=== PATIENT | female | born 1970 | race Caucasian/White ===

== ENCOUNTER 2017-04-05 14:10 | Emergency (ER) | payer BC ==
[~2017-04-05] VITALS: Ht 157.5 cm; Wt 91.0 kg
[2017-04-05 14:12] VITALS: BP 159/99; PULSE 102; RESP 24; TEMP 98.5; O2SAT 98
[2017-04-05] MEDS ORDERED: BIRTHCONTROL (15:04)
[2017-04-05] MEDS ORDERED: ZANA2CAP PO (15:04)
[2017-04-05] MEDS ORDERED: VOLT100T (15:04)
[2017-04-05] MEDS ORDERED: CETI10CA3 (15:04)
[2017-04-05] MEDS ORDERED: MONT4CHW2 CHEW (15:04)
[2017-04-05] MEDS ORDERED: LEXA10TA PO (15:04)
--- NOTE | 2017-04-05 15:14 | PD ---
HPI Chief Complaint: Neuro Symptoms/ Deficits Time Seen by Provider: 14:44 Travel History International Travel<30 days: No Contact w/Intl Traveler<30days: No Traveled to known affect area: No History of Present Illness HPI The patient's 46 years old. She describes a tremor. She reports in September 2016 to cervical fusion with a plate and screws. This was done by Dr. Munoz. She reports for the past 8 days or so she has had generalized tremor. It has been constant. It's worsening. She saw her neurosurgeon he didn't x-ray and had her follow up with primary care. She reports shaking and chills at night. She denies any change in medications. Associated symptoms include dizziness. No fecal/urinary incontinence. No upper extremity weakness. No saddle anesthesia. PFSH Past Medical History Reproductive: Yes (one ovary) ?: Not LMP: years Social History Alcohol Use: No Tobacco Use: Yes Substance Use: No Allergies-Medications (Allergen,Severity, Reaction): Coded Allergies: No Known Allergies (Unverified , 04/05/17) Reported Meds & Prescriptions Reported Meds & Active Scripts Active Bactrim DS (Sulfamethoxazole-Trimethoprim) 800-160 Mg Tab 1 Tab PO BID 5 Days Valium (Diazepam) 5 Mg Tab 5 Mg PO BID PRN Reported [Birthcontrol ] DAILY Lexapro (Escitalopram Oxalate) 10 Mg Tab 10 Mg PO HS Singulair (Montelukast Sodium) 4 Mg Chew Unknown Dose CHEW HS Zyrtec (Cetirizine HCl) 10 Mg Capsule HS Voltaren-Xr (Diclofenac Sodium) 100 Mg Tab.er.24h 75 HS Zanaflex (Tizanidine HCl) 2 Mg Cap 2 Mg PO HS Review of Systems Except as stated in HPI: all other systems reviewed are Neg Physical Exam Narrative GENERAL: 46 yo F, WNWD, mild distress SKIN: Warm and dry. HEAD: Atraumatic. Normocephalic. EYES: Pupils equal and round. No scleral icterus. No injection or drainage. ENT: No nasal bleeding or discharge. Mucous membranes pink and moist. NECK: Trachea midline. No JVD. CARDIOVASCULAR: Regular rate and rhythm. RESPIRATORY: No accessory muscle use. Clear to auscultation. Breath sounds equal bilaterally. GASTROINTESTINAL: Abdomen soft, non-tender, nondistended. Hepatic and splenic margins not palpable. MUSCULOSKELETAL: Extremities without clubbing, cyanosis, or edema. No obvious deformities. NEUROLOGICAL: Mild generalized tremor. CN III-XII. Normal speech. Normal memory/ mentation. Motor function normal. Cerebellar function normal. PSYCHIATRIC: Appropriate mood and affect; insight and judgment normal. Data Data Last Documented VS Vital Signs Date Time Temp Pulse Resp B/P (MAP) Pulse Ox O2 Delivery O2 Flow Rate FiO2 04/05/17 14:12 98.5 102 24 159/99 (119) 98 Room Air VS reviewed Orders Orders Basic Metabolic Panel (Bmp) (04/05/17 15:04) Complete Blood Count With Diff (04/05/17 15:04) Urinalysis - C+S If Indicated (04/05/17 15:04) Ecg Monitoring (04/05/17 15:04) Iv Access Insert/Monitor (04/05/17 15:04) Oximetry (04/05/17 15:04) Sodium Chloride 0.9% Flush (Ns Flush) (04/05/17 15:15) Drug Screen, Random Urine (04/05/17 15:04) Lorazepam Inj (Ativan Inj) (04/05/17 15:15) Oxycodone-Acetamin 5-325 Mg (Percocet (04/05/17 15:15) Ct Brain W/O Iv Contrast(Rout) (04/05/17 15:10) Urine Culture (04/05/17 15:42) Ceftriaxone Inj (Rocephin Inj) (04/05/17 17:00) Labs Laboratory Tests Test 04/05/17 15:42 White Blood Count 9.6 TH/MM3 Red Blood Count 4.64 MIL/MM3 Hemoglobin 15.3 GM/DL Hematocrit 45.1 % Mean Corpuscular Volume 97.3 FL Mean Corpuscular Hemoglobin 33.0 PG Mean Corpuscular Hemoglobin Concent 34.0 % Red Cell Distribution Width 13.1 % Platelet Count 323 TH/MM3 Mean Platelet Volume 7.7 FL Neutrophils (%) (Auto) 68.7 % Lymphocytes (%) (Auto) 24.6 % Monocytes (%) (Auto) 5.1 % Eosinophils (%) (Auto) 0.8 % Basophils (%) (Auto) 0.8 % Neutrophils # (Auto) 6.6 TH/MM3 Lymphocytes # (Auto) 2.4 TH/MM3 Monocytes # (Auto) 0.5 TH/MM3 Eosinophils # (Auto) 0.1 TH/MM3 Basophils # (Auto) 0.1 TH/MM3 CBC Comment DIFF FINAL Differential Comment Urine Color YELLOW Urine Turbidity HAZY Urine pH 5.5 Urine Specific Meredith 1.024 Urine Protein TRACE mg/dL Urine Glucose (UA) NEG mg/dL Urine Ketones NEG mg/dL Urine Occult Blood TRACE Urine Nitrite NEG Urine Bilirubin NEG Urine Urobilinogen 2.0 MG/DL Urine Leukocyte Esterase LARGE Urine RBC 3 /hpf Urine WBC 22 /hpf Urine Squamous Epithelial Cells 4 /hpf Urine Calcium Oxalate Crystals FEW /hpf Urine Bacteria MOD /hpf Urine Hyaline Casts 1 /lpf Urine Mucus MOD /lpf Microscopic Urinalysis Comment CATH-CULTURE IND Blood Urea Nitrogen 8 MG/DL Creatinine 0.90 MG/DL Random Glucose 83 MG/DL Calcium Level 8.4 MG/DL Sodium Level 139 MEQ/L Potassium Level 4.0 MEQ/L Chloride Level 109 MEQ/L Carbon Dioxide Level 24.8 MEQ/L Anion Gap 5 MEQ/L Estimat Glomerular Filtration Rate 67 ML/MIN Urine Opiates Screen NEG Urine Barbiturates Screen NEG Urine Amphetamines Screen NEG Urine Benzodiazepines Screen NEG Urine Cocaine Screen NEG Urine Cannabinoids Screen NEG MDM Medical Decision Making Medical Screen Exam Complete: Yes Emergency Medical Condition: Yes Differential Diagnosis essential tremor, electrolyte imbalance, renal failure, medication side effect, chronic pain, anxiety Narrative Course CBC & BMP Diagram 04/05/17 15:42 Calcium Level 8.4 L UA: UTI present UTOX: negative Last [address] 04/05/17 1510 Signed Impressions: Service Date/Time: Wednesday, April 05, 2017 15:52 - CONCLUSION: Negative noncontrast contrast CT Shyam Pat MD The patient is resting comfortably and feels better, is alert and in no distress. The patients results and examination findings were discussed. The repeat examination is unremarkable and benign. The history, exam, diagnostic testing, and current condition do not suggest any significant pathology to warrant further testing, continued ED treatment, admission, or surgical evaluation at this point. The vital signs have been stable. The patient does not have uncontrollable pain, intractable vomiting, or other significant symptoms. The patient's condition is stable and appropriate for discharge. The patient will pursue further outpatient evaluation with a primary care physician or other designated or consulting physician as indicated in the discharge instructions. The patient expressed understanding and was agreeable with this plan. Diagnosis Primary Impression: Tremor Referrals: Alba Hays MD call for appointment Misha Vasquez MD call for appointment Additional Instructions: You have a choice when it comes to health care, and we are glad that you chose [facility]. Hopefully, we have met your expectations on today's visit. You are welcome to return to [facility] at any time, as we are committed to meeting the health care needs of our community. Med/Other Pt SpecificInfo: Prescription(s) given Scripts Sulfamethoxazole-Trimethoprim (Bactrim DS) 800-160 Mg Tab 1 TAB PO BID for Infection for 5 Days, #10 TAB 0 Refills Prov: Celestino Min MD 04/05/17 Diazepam (Valium) 5 Mg Tab 5 MG PO BID Y for TREMULOUSNESS, #20 TAB 0 Refills Prov: Celestino Min MD 04/05/17 Disposition: 01 DISCHARGE HOME Condition: Stable Celestino Min MD Apr 05, 2017 15:14
[2017-04-05] MEDS ORDERED: LORazepam 2 MG/ML VIAL IV PUSH ONE (15:15)
[2017-04-05] MEDS ORDERED: SODIUM CHLORIDE 0.9% FLUSH 5 ML FLUSH IV FLUSH PRN (15:15)
[2017-04-05] MEDS ORDERED: oxyCODONE/ACETAMINOPHEN 5 MG/325 MG TAB PO ONE (15:15)
[2017-04-05 15:58] LABS: AUTOMATED NEUTROPHIL # 6.6 TH/MM3 (1.8-7.7); BASOPHIL # 0.1 TH/MM3 (0-0.2); BASOPHIL % 0.8 % (0.0-2.0); EOSINOPHIL # 0.1 TH/MM3 (0-0.4); EOSINOPHIL % 0.8 % (0.0-4.0); HEMATOCRIT 45.1 % (35.0-46.0); HEMO FLAGS DIFF FINAL; LYMPH % 24.6 % (9.0-44.0); LYMPHOCYTE # 2.4 TH/MM3 (1.0-4.8); MEAN CELL VOLUME 97.3 FL (80.0-100.0); MONO % 5.1 % (0.0-8.0); NEUT % 68.7 % (16.0-70.0); PLATELET COUNT 323 TH/MM3 (150-450); RED BLOOD COUNT 4.64 MIL/MM3 (4.00-5.30); RED CELL DISTRIBUTION WIDTH 13.1 % (11.6-17.2); WHITE BLOOD COUNT 9.6 TH/MM3 (4.0-11.0)
--- NOTE | 2017-04-05 16:14 | RADRPT ---
EXAM DATE/TIME: 04/05/2017 15:52 [facility] COMPARISON: No previous studies available for comparison. INDICATIONS : Tremors and cephalgia status post cervical fusion six months ago. RADIATION DOSE: 56.35 CTDIvol (mGy) MEDICAL HISTORY : None SURGICAL HISTORY : Fusion, cervical. ENCOUNTER: Initial ACUITY: 1 month PAIN SCALE: 5/10 LOCATION: Bilateral head TECHNIQUE: Multiple contiguous axial images were obtained of the head. Using automated exposure control and adj ustment of the mA and/or kV according to patient size, radiation dose was kept as low as reasonably a chievable to obtain optimal diagnostic quality images. DICOM format image data is available electro nically for review and comparison. FINDINGS: CEREBRUM: The ventricles are normal for age. No evidence of midline shift, mass lesion, hemorrhage or acute in farction. No extra-axial fluid collections are seen. POSTERIOR FOSSA: The cerebellum and brainstem are intact. The 4th ventricle is midline. The cerebellopontine angle i s unremarkable. EXTRACRANIAL: The visualized portion of the orbits is intact. SKULL: The calvaria is intact. No evidence of skull fracture. CONCLUSION: Negative noncontrast contrast CT Shyam Pat MD on April 05, 2017 at 16:10 Board Certified Radiologist. This report was verified electronically.
[2017-04-05 16:15] LABS: BICARBONATE 24.8 MEQ/L (21.0-32.0)
[2017-04-05 16:43] LABS: BACTERIA, URINE MOD /hpf; BLOOD, URINE TRACE (NEG); CALCIUM OXALATE CRYSTALS,URINE FEW /hpf; GLUCOSE,URINE NEG (NEG); HYALINE CAST, URINE 1 /lpf (RARE); KETONE, URINE NEG (NEG); MUCUS URINE MOD /lpf (OCC); NITRITE,URINE NEG (NEG); PH, URINE 5.5 (5.0-8.5); SQUAMOUS EPITHELIAL CELL URINE 4 /hpf (0-5); URINE COLOR YELLOW (YELLW/STRAW)
[2017-04-05 16:45] LABS: COMMENT (UR) CATH-CULTURE IND; CULTURE IF INDICATED CATH CULTURE IND
[2017-04-05] MEDS ORDERED: cefTRIAXone INJ 1,000 MG in SODIUM CHLORIDE 0.9% INJ 100 ML IV ONE (17:00)
[2017-04-05] MEDS ORDERED: DIAZ5 PO (17:30)
[2017-04-05] MEDS ORDERED: BACT800T5 PO (17:41)
[2017-04-05] MEDS ORDERED: DIFL150T PO (17:55)
== END 2017-04-05 18:01 | disposition home or self-care (01) ==
LOC: NEPD 14:10
DX: R25.1 Tremor, unspecified (principal); N39.0 Urinary tract infection, site not specified; B96.89 Other specified bacterial agents as the cause of diseases classified elsewhere; Z72.0 Tobacco use
CPT/HCPCS: 70450; 80048; 80307; 81001; 85025; 87086; 96365; 96375; 99285; J0696; J2060